=== PATIENT | female | born 1935 | race Caucasian/White ===

== ENCOUNTER 2017-05-15 08:47 | Day surgery (SDC) | payer MEDICARE ==
[~2017-05-15] VITALS: Ht 160 cm; Wt 80.7 kg
[2017-05-15] MEDS ORDERED: NS 1000P @30 MLS/HR (KVO) IV SCH (09:15)
[2017-05-15 09:21] VITALS: BP 175/85; PULSE 74; RESP 18; TEMP 97.4; O2SAT 96
[2017-05-15 09:34] LABS: AUTOMATED NEUTROPHIL # 3.7 TH/MM3 (1.8-7.7); BASOPHIL % 0.6 % (0.0-2.0); EOSINOPHIL # 0.3 TH/MM3 (0-0.4); EOSINOPHIL % 4.4 % (0.0-4.0); HEMATOCRIT 41.8 % (35.0-46.0); HEMO FLAGS DIFF FINAL; LYMPH % 25.8 % (9.0-44.0); LYMPHOCYTE # 1.6 TH/MM3 (1.0-4.8); MEAN CELL VOLUME 91.3 FL (80.0-100.0); MEAN CORPUSCULAR HEMOGLOBIN 31.4 PG (27.0-34.0); MEAN CORPUSCULAR HGB CONC 34.4 % (32.0-36.0); MONO % 8.7 % (0.0-8.0); NEUT % 60.5 % (16.0-70.0); PLATELET COUNT 182 TH/MM3 (150-450); RED BLOOD COUNT 4.58 MIL/MM3 (4.00-5.30); RED CELL DISTRIBUTION WIDTH 14.8 % (11.6-17.2); WHITE BLOOD COUNT 6.1 TH/MM3 (4.0-11.0)
[2017-05-15] MEDS ORDERED: AMLO2.5T PO (09:39)
[2017-05-15] MEDS ORDERED: ROSU40 PO (09:39)
[2017-05-15] MEDS ORDERED: FENO1TAB76 PO (09:39)
[2017-05-15] MEDS ORDERED: POTASOL PO (09:39)
[2017-05-15] MEDS ORDERED: VITA500T4 PO (09:39)
[2017-05-15] MEDS ORDERED: SULF1SOL4 EACH EYE (09:39)
[2017-05-15] MEDS ORDERED: GLIM1TAB PO (09:39)
[2017-05-15] MEDS ORDERED: LEVO50TA4 PO (09:39)
[2017-05-15] MEDS ORDERED: LISI10TA3 PO (09:39)
[2017-05-15] MEDS ORDERED: CORE25TA PO (09:39)
[2017-05-15] MEDS ORDERED: OMEGCAP PO (09:39)
[2017-05-15] MEDS ORDERED: ASPI325T PO (09:39)
[2017-05-15] MEDS ORDERED: ALLO100T PO (09:39)
[2017-05-15] MEDS ORDERED: TRAM50TA PO (09:39)
[2017-05-15] MEDS ORDERED: MULT-65 PO (09:39)
[2017-05-15 09:41] LABS: APTT (PATIENT) 26.3 SEC (24.3-30.1); PROTHROMBIN TIME - PATIENT 11.3 SEC (9.8-11.6)
[2017-05-15 09:48] LABS: BICARBONATE 23.6 MEQ/L (21.0-32.0); POTASSIUM 4.8 MEQ/L (3.5-5.1)
[2017-05-15] MEDS ORDERED: HEPARIN-NS/PF INJ 500 ML ONE (10:32)
[2017-05-15] MEDS ORDERED: VERAPAMIL HCL 5 MG/2 ML VIAL ONE (10:45)
[2017-05-15] MEDS ORDERED: MIDAZOLAM HCL 2 MG/2 ML VIAL ONE (10:45)
[2017-05-15] MEDS ORDERED: NITROGLYCERIN INJ 5 ML ONE (10:46)
[2017-05-15] MEDS ORDERED: HEPARIN SODIUM - IV 10,000 UNITS/10 ML VIAL ONE (10:46)
[2017-05-15] MEDS ORDERED: hydrALAZINE HCL 20 MG/ML VIAL ONE (11:34)
--- NOTE | 2017-05-15 11:51 | CATHPROC ---
[employer] HIS Report Study Information Study Number Admission Scheduled Start Study Start [id number] May 15 2017 8:47AM 05/15/2017 May 15 2017 10:30AM [facility] Cardiac Catheterization Admit Source Facility Department Other [facility] Physician and Clinical Staff Initial Wilmar Bacon Environmental Advisor Emily Flowers,JOYA Recorder Coleen Funk,MANUEL TECH2 Scrub Ho Hester RCIS(BS) Procedures Performed Procedure Location (Site) Vessel Name Coronary Angiograms LCA Left Coronary Coronary Angiograms RCA Right Coronary Coronary Angiograms STALEY-LAD Left Coronary Coronary Angiograms SVG-DIAG Left Coronary Coronary Angiograms SVG-RCA Right Coronary Wire insertion Radial (left) Radial Art. Equipment Time Concrete Mixer Loader Truck Mounted Description Size Mfg Part Number Used/Scraped TRANSDUCER, TRUWAVE [id number] 10:50 2359 Media * Used W/STOCKCOCK *[id number] [id number] *[id number] [id number] *[id number] [id number] *[id number] 10:50 Crossbar PACK, CCL CUSTOM * Used *[id number] 10:50 Crossbar SUPPORT, ARTERIAL ADULT 39300 Used BAND, RADIAL COMPRESSION TR [id number] 11:30 [employer] 24CM Used SHORT 24 *[id number] 10:50 [place] WIRE, EXCHANGE 260CM 3MMJ 260CM Used *[id number] 10:50 NAMIC MANIFOLD, 4 PORT * Used *[id number] 10:50 NYCOMED OMNIPAQUE, 350 MG, 150ML 150ML [id number] Used [id number] 10:50 [place] [employer] BL[employer]ET,WARM AIR CCL * Used *[id number] SHEATH, FR6 TRANSRADIAL [id number] 10:50 TapnScrap FR 6 Used SLENDER 10CM *[id number] History: Current Medications Medication Dosage/Unit Route Frequency Last Date/Time Taken ASA CRESTOR LISINOPRIL CARVEDILOL NORVASC Allopurinol Synthroid TRAMADOL History: Allergies Allergy Reaction No Known Allergies History: Risk Factors Family History of Hypertension Dyslipidemia Previous NE Previous Heart Failure Premature CAD Yes Yes Yes No No Prior Valve Prior PCI Prior CABG Prior CABGDate Surgery No No Yes 02/05/2005 Cerebrovascular Peripheral Artery Chronic Lung On Dialysis Diabetes Diabetes Therapy Disease Disease Disease No Yes No No Yes Oral History: Symptoms/Diagnosis Selection Items GRANDE SOB History: CV Disease Selection Items Known CAD NE History: Stress Tests Stress or Imaging Studies Performed Yes Standard Exercise Stress Test No Stress Echo No Stress Test SPECT Stress Test SPECT Result Stress Test SPECT Ischemia Risk/Extent Yes Positive Intermediate Stress Test CMR No Cardiac CTA Coronary Calcium Score No No History: Other Disease Selection Items Cancer Renal Failure/Insufficiency History: NE/CV Data Previous CABG Date 02/05/2005 History: Other Current Smoker No Labs Hgb (g/dl) Hct (%) WBC (l/cumm) Platelets (thousands) 11.60-17.00 35.00-51.00 4.00-11.00 150.00-450.00 14.4 41.8 6.1 182 Glucose (mg/dl) BUN (mg/dl) Creatinine (mg/dl) BUN:Creatinine (1:x) 74.00-106.00 7.00-18.00 0.50-1.30 10.00-20.00 128 19 1.2 15.8 Na (meq/l) K (meq/l) 136.00-145.00 3.50-5.10 141 4.8 INR (PTT:PT) 0.90-1.10 1 CPK-MB (ng/ML) 0.50-3.60 Not Drawn Medication Medication Total Dose (Bolus/Oral) Medication Total Dosage/Unit 1% XYLOCAINE 20 mL FENTANYL 25 mcg HYDRALAZINE 10 mg OXYGEN 2 l/min RADIAL COCKTAIL 5 mL (Bolus) VERSED 0.5 mg Medications (Bolus/Oral) Medication Time Given Dosage/Unit Administered By Reason 1% XYLOCAINE 05/15/2017 11:00:36 AM 20 mL Wilmar Onofre 20 mL 1% XYLOCAINE given in lab by Wilmar Onofre in Left Wrist via Subcutaneous. Ordered by Wilmar Diaz. VERSED 05/15/2017 11:01:17 AM 0.5 mg Emily Flowers 0.5 mg VERSED given in lab by Emily Flowers RN in Left Hand via Peripheral IV. Ordered by Wilmar Onofre. FENTANYL 05/15/2017 11:02:37 AM 25 mcg Emily Flowers 25 mcg FENTANYL given in lab by Emily Flowers RN in Left Hand via Peripheral IV. Ordered by Wilmar Chaney. Ntg 200mcg Verapamil 2.5mg Heparin RADIAL COCKTAIL 05/15/2017 11:04:46 AM 5 mL (Bolus) Wilmar Onofre 3000U 5 mL (Bolus) RADIAL COCKTAIL given in lab by Wilmar Onofre in Left Radial via Radial. Using [Solu tion Name]. Ordered by Wilmar Onofre. Reason: Ntg 200mcg Verapamil 2.5mg Heparin 3300U. OXYGEN 05/15/2017 11:10:28 AM 2 l/min Emily Flowers 2 l/min OXYGEN given in lab by Emily Flowers, JOYA via Nasal. Ordered by Wilmar Onofre. HYDRALAZINE 05/15/2017 11:35:43 AM 10 mg Emily Flowers 10 mg HYDRALAZINE given in lab by Emily Flowers RN in Left Hand via Peripheral IV. Ordered by Wilmar Siddiqui. Medication (Drip) Medication Time Given Dosage/Unit Concentration/Unit Diluent (ml) Solution IV Solutions 05/15/2017 10:42:02 AM 0 mL (IV) 500 NaCl .9 Patient arrived on IV Solutions in Left Hand via Peripheral IV. Pump/Drip Flow = 20 ml/hr using NaCl .9. Initial Case Assessment Cardiovascular HR Rhythm NIBP Chest Pain 78 SR 185/81 0 Circulatory - Right Pulses Dorsalis Pedis Femoral 2 3 Scale (0,1,2,3,4,d) Circulatory - Left Pulses Dorsalis Pedis Femoral 2 3 Scale (0,1,2,3,4,d) Neurological State Oriented to time-place- Alert Moves all extremities person Respiration - General Respiration Rate SpO2 (%) (B/min) 18 95 Chronological Log Time Study Chronological Log 10:34:24 Patient arrived via Bed. 10:34:26 Patient Name, D.O.B, / Armband Verified By R.N. 10:34:27 Consent signed by the physician and the patient and verified by the [facility] staff. 10:34:27 Pre-op and post- op instructions given; patient acknowledges understanding of instructions. 10:34:28 Verbal Stimulation=2 Physical Stimulation=2 Airway=2 Respiration=2 TOTAL=8. (0=absent, 1=li mited, 2=present) 10:34:30 Presedation assessment performed by [facility] RN. 10:34:32 Allens test performed on the left radial and ulnar artery. 10:34:37 Patient has been NPO for More than 6Hrs. 10:34:38 Skin Breakdown-NONE Vitals capture started with the following parameters, Patient=Adult, Interval=5 min, Initial Pr wonzci=121 mmHg, :34:41 Deflation Rate=5 mmHg, Cuff placed on Right Arm 10:36:46 Vitals capture stopped. Vitals capture started with the following parameters, Patient=Adult, Interval=5 min, Initial Pr uphmqx=214 mmHg, :38:34 Deflation Rate=5 mmHg, Cuff placed on Right Arm 10:38:37 Reference ECG taken 10:40:01 HR=78 bpm, ILXP=992/81 mmhg, SpO2=96 %, Resp=20 B/min, Pain=0, Santoyo=2 10:41:44 Darryl Prominences Protected 10:41:47 A # 20 IV was noted in the Hand (left). Grade = PATENT 10:42:02 Patient arrived on IV Solutions in Left Hand via Peripheral IV. Pump/Drip Flow = 20 ml/hr u sing NaCl .9. 10:42:25 History and physical on the chart or being dictated. Assessment: Initial Case, HR=78 BPM, Rhythm=SR, LOWD=233/81 mmhg, Chest Pain=0 Right Pulses: Zachariah Ped=2, Femoral=3 10:42:59 Left Pulses: Zachariah Ped=2, Femoral=3, Radial=2 Neurological: State=Alert, Ox3, OCHOA Respiration: Resp=18 B/min, SpO2=95 % 10:44:23 HR=72 bpm, RNTJ=918/77 mmhg, SpO2=94.0 %, Resp=22 B/min 10:49:20 HR=80 bpm, UMFB=245/93 mmhg, SpO2=95.0 %, Resp=20 B/min, Pain=0, Mindy=10, Santoyo=2 10:51:06 MD paged 10:51:10 Bilateral groins and left wrist prepped with 2% chlorhexidine, and draped after a 3 min. wa iting time. 10:54:26 MD arrived. 10:54:27 HR=78 bpm, NKQY=509/85 mmhg, SpO2=94.0 %, Resp=20 B/min, Pain=0, Santoyo=2 10:54:40 Pressure channel 1 zeroed. 10:59:28 HR=77 bpm, FEFZ=747/74 mmhg, SpO2=94.0 %, Resp=20 B/min Time Out. Correct patient, correct procedure,correct physician, power injector not loaded with contrast with surgical 11:00:03 team present. Time Out Concurred by MD and individual staff in procedure 11:00:35 Case Start 11:00:36 20 mL 1% XYLOCAINE given in lab by Wilmar Onofre in Left Wrist via Subcutaneous. Ordere d by Wilmar Onofre. 11:01:17 0.5 mg VERSED given in lab by Emily Flowers, RN in Left Hand via Peripheral IV. Ordered b y Wilmar Onofre. 11:02:37 25 mcg FENTANYL given in lab by Emily Flowers, JOYA in Left Hand via Peripheral IV. Ordered by Wilmar Onofre. 11:03:20 Access site was Radial Artery. left A SHEATH, FR6 TRANSRADIAL SLENDER 10CM FR 6 was advanced into the Radial (left) using the Cesar ribeiro 11:03:34 technique. 11:04:23 HR=79 bpm, HJBZ=445/80 mmhg, SpO2=92.0 %, Resp=20 B/min 5 mL (Bolus) RADIAL COCKTAIL given in lab by Wilmar Onofre in Left Radial via Radial. Using [Solution Name]. 11:04:46 Ordered by Wilmar Onofre. Reason: Ntg 200mcg Verapamil 2.5mg Heparin 3300U. A JR 4.0 INFINITI CATHETER FR 5 was advanced over a wire. OMNIPAQUE, 350 MG, 150ML 150ML was us ed for 11:06:19 injections. 11:09:18 HR=72 bpm, GQNT=539/69 mmhg, SpO2=87.0 %, Resp=19 B/min 11:09:24 The STALEY-LAD was injected and visualized at various angles. OMNIPAQUE, 350 MG, 150ML 150ML used. 11:10:06 A WIRE, EXCHANGE 260CM 3MMJ 260CM was inserted via Radial (left). 11:10:28 2 l/min OXYGEN given in lab by Emily Flowers, JOYA via Nasal. Ordered by Wilmar Onofre. Recorded Pressure: LV, HR=75, Condition=Condition 1 11:11:39 (Left Ventricle) LV 175/6/15 Recorded Pressure: LV, Ao, HR=76, Condition=Condition 1 11:11:57 (Left Ventricle) LV 171/5/12, (Aorta) Ao 170/63/107 11:14:33 The RCA was injected and visualized at various angles. OMNIPAQUE, 350 MG, 150ML 150ML used . 11:15:00 HR=75 bpm, DSIE=818/72 mmhg, SpO2=94 %, Resp=18 B/min 11:16:08 The SVG-DIAG was injected and visualized at various angles. OMNIPAQUE, 350 MG, 150ML 150ML used. 11:18:51 The SVG-RCA was injected and visualized at various angles. OMNIPAQUE, 350 MG, 150ML 150ML u sed. 11:19:26 HR=77 bpm, PRED=132/73 mmhg, SpO2=95.0 %, Resp=22 B/min, Pain=0, Santoyo=2 After removing the current catheter a JL 4.0 INFINITI CATHETER FR 5 was advanced over a WIRE, E XCHANGE 260CM 11:20:28 3MMJ 260CM. 11:23:44 The LCA was injected and visualized at various angles. OMNIPAQUE, 350 MG, 150ML 150ML used . 11:24:25 HR=73 bpm, DUCJ=543/67 mmhg, SpO2=95.0 %, Resp=14 B/min After removing the current catheter a YVROSE INFINITI CATHETER FR 5 was advanced over a WIRE, EXCH ERNIE 260CM 11:25:05 3MMJ 260CM. 11:28:55 The STALEY-LAD was injected and visualized at various angles. OMNIPAQUE, 350 MG, 150ML 150ML used. 11:29:26 HR=72 bpm, FABI=663/67 mmhg, SpO2=95.0 %, Resp=15 B/min, Pain=0, Mindy=10 11:33:46 Catheter was removed 11:33:50 Case End 11:34:25 HR=75 bpm, JRNF=245/81 mmhg, SpO2=97.0 %, Resp=11 B/min Radial Compression Device Used. 9 mLs of air placed in BAND, RADIAL COMPRESSION TR SHORT 24 24 CM. Affected 11:34:56 hand 98 % O2 saturation. 11:35:12 No case complications noted. 11:35:13 Cine recording checked. 11:35:14 Bedside Report will be given. 11:35:43 10 mg HYDRALAZINE given in lab by Emily Flowers, RN in Left Hand via Peripheral IV. Orde red by Wilmar Onofre. 11:39:31 HR=76 bpm, WCIK=819/73 mmhg, SpO2=97.0 %, Resp=18 B/min 11:42:06 Vitals capture stopped. End Study - Contrast Media Used In Study Contrast Total Opened (mL) Total Used (mL) Total Wasted (mL) Omnipaque 55 55 0 End Study - Maximum Contrast Load Max Contrast Load (mL) 336.2 End Study - Radiation Exposure Fluoro Time (minutes) 9.6 End Study - Sheaths Sheaths Pulled By Sheath Hold Time (min) Wilmar Onofre End Study - Patient Disposition Complications Transferred To Telemetry Bed
[2017-05-15] MEDS ORDERED: MISC INFORMATION XX ONE (12:00)
--- NOTE | 2017-05-15 14:54 | EKG ---
Date Performed: 05/15/2017 Time Performed: 09:26:14 PTAGE: 81 years EKG: Sinus rhythm . IV conduction defect LVH with secondary repolarization abnormality Inferior/lateral ST-T changes ar e probably due to ventricular hypertrophy Abnormal ECG NO PREVIOUS TRACING DOCTOR: Vanda Augustine Interpretating Date/Time 05/15/2017 14:51:40
--- NOTE | 2017-05-15 23:35 | MA ---
cc: WILMAR AMOR DO DATE May 15, 2017 PROCEDURE Left heart catheterization, coronary angiogram, bypass angiogram, moderate sedation 30 minutes. PREPROCEDURE DIAGNOSIS Shortness of breath, abnormal stress test (intermediate risk). POSTPROCEDURE DIAGNOSIS [place] coronary artery disease, history of coronary artery bypass grafting (3/3 patent grafts). MEDICATIONS 1. Versed 0.5 milligrams. 2. Fentanyl 25 micrograms. 3. Verapamil 2.5 milligrams. 4. Nitro 200 micrograms. 5. Heparin 3300 units. 6. Hydralazine 10 milligrams. CONTRAST 55 cc. FLUOROSCOPY 9.6 minutes MODERATE SEDATION 30 minutes ESTIMATED BLOOD LOSS 10 cc. PROCEDURAL SUMMARY Valarie Goodwin is a pleasant 81-year-old female who originally saw my partner, Dr. Mendoza, in the office for shortness of breath. Because of this she was recommended pharmacologic nuclear stress testing. During this she was found to have anterior septal and inferior ischemia and so she was recommended cardiac catheterization. Risks, benefits and alternatives were explained to her and she consented as such. She was brought to the lab and prepped in the usual sterile fashion. Because of her history of bypass grafting left radial access was used. Left radial artery was accessed using a modified Seldinger technique and placement of a 5/6 [place] slender sheath. This was easily aspirated and flushed. A JR-4 was advanced over a J-wire to the left subclavian but did not engage the STALEY well. JR-4 was then advanced across the aortic valve for measurement of left ventricular end-diastolic pressure. This pulled back across the aortic valve showing no significant gradient of aortic stenosis. JR-4 was then used for selective angiography of the [place] RCA, SVG to the diagonal and SVG to the RCA. JR-4 was exchanged out for a JL-4 which was used for selective angiography of the [place] left coronary artery system. JL-4 was then exchanged out for an IM catheter which was used for selective angiography of the STALEY to LAD. IM catheter was removed over a J-wire. Radial band was placed over the arteriotomy site for hemostasis. The patient left the laborer road cardiovascularly stable. FINDINGS Left main overall normal size vessel with adequate reflux and no significant disease. It trifurcates into an LAD, ramus and circumflex. LAD 99% occluded after the first septal ___ long segment distal to this, competitive flow is seen. Ramus small vessel which covers very little myocardium. Circumflex small size vessel with mild luminal irregularities through the midportion. It gives off two obtuse marginals with the first obtuse marginal being exceptionally small and the second obtuse marginal being a relatively normal size vessel with mild tortuosity but no significant disease. RCA is a small vessel with a 99% occlusion in the midportion. Distal to this there is competitive flow noted. STALEY to LAD which is patent and no significant disease throughout the graft or touchdown. Distally, the LAD is overall a relatively small vessel but no focal lesions are noted. SVG to diagonal with no disease throughout the graft. It touches down on a diagonal which is overall a small vessel with no significant disease. This also retrogradely fills a first diagonal as well as some competitive flow into the LAD. SVG to PDA. Overall the graft has no disease. It touches down on the RCA with no lesion noted. It retrogradely fills an RV branch. Distally, it supplies the PDA. LVEDP 12. IMPRESSION 1. Shortness of breath which appears to be noncoronary in nature. 2. False positive abnormal stress test. 3. Coronary artery disease as above. 4. History of coronary artery bypass grafting (3/3 bypass grafts patent). RECOMMENDATIONS 1. Ms. Goodwin appears to have no significant lesions on her angiogram leading to her shortness of breath. 2. She was noted to be quite hypertensive during the case and she has been following her blood pressure home and states that it runs around 140 systolically. I did ask that she follow this more concisely and if any problems discuss this with Dr. Mendoza, her primary care physician. 3. She will continue with medical management of her coronary artery disease. 4. She will follow up with Dr. Mendoza. Thank you for allowing me to see Valarie Goodwin. If there are any questions please do not hesitate to call. Wilmar Amor DO VGP/EO /10:08 PM /11:13 PM
== END 2017-05-15 14:42 | disposition home or self-care (01) ==
LOC: HDOC 08:47 → HDIC 08:48 → HDOC 14:42
PROVIDERS: ATTEND Nuclear Medicine Nuclear Cardiology
DX: I25.10 Atherosclerotic heart disease of native coronary artery without angina pectoris (principal); R94.39 Abnormal result of other cardiovascular function study; I12.9 Hypertensive chronic kidney disease with stage 1 through stage 4 chronic kidney disease, or unspecified chronic kidney disease; E10.22 Type 1 diabetes mellitus with diabetic chronic kidney disease; N18.4 Chronic kidney disease, stage 4 (severe); Z95.1 Presence of aortocoronary bypass graft; Z01.810 Encounter for preprocedural cardiovascular examination; Z01.818 Encounter for other preprocedural examination
CPT/HCPCS: 80048; 85025; 85610; 85730; 93005; 93454; C1769; C1893; J0360; J1644; J2250; J3010